=== PATIENT | male | born 1960 | race Caucasian/White ===

== ENCOUNTER 2017-04-04 20:05 | Emergency (ER) | payer BC ==
[2017-04-04 20:19] VITALS: BP 140/81
--- NOTE | 2017-04-05 02:02 | ED ---
Skin Complaint - HPI Summary HPI Summary: Patient presents to the ED after suffering from 2 bee stings this afternoon. He is allergic and has been stung before and has always needed to be in the ED with rash, difficulty breathing and often given epi, steroids, and benadryl. Today, immediately after sustaining the stings, he began to feel his feet swell up, which is common when he has bee stings, and took 50mg benadryl. After feet swelling, he feels difficultly breathing and his throat begins to close. He arrived to the ED 2 hours prior to provider seeing him, and upon examination he states that while this is usually the progression of his allergic reaction, upon arrival to the ED the swelling began to dissipate and he feels none of those symptoms currently. He comes here as a precaution. He has some soreness to the right arm where the bee had stung and there is surrounding erythema, but no other symptoms remain. Denies throat closing, SOB, difficulty breathing, swelling in feet or elsewhere. Denies health problems and takes no medications. He has an epi pen handy and with him at all times at home. - History of Current Complaint Chief Complaint: EDAnimalBite Time Seen by Provider: 04/04/17 20:40 Stated Complaint: BEE STING Hx Obtained From: Patient Onset/Duration: Started Hours Ago Skin Exposure Onset/Duration: Hours Ago Timing: Constant Onset Severity: Mild Current Severity: None Pain Intensity: 0 Pain Scale Used: 0-10 Numeric Skin Location: Diffuse Character: Swelling, Pruritus Aggravating Symptom(s): Nothing Alleviating Symptom(s): Nothing Associated Signs & Symptoms: Negative - Allergy/Home Medications Allergies/Adverse Reactions: Allergies Allergy/AdvReac Type Severity Reaction Status Date / Time Bee Pollen Allergy Difficulty Verified 04/04/17 20:16 Breathing PMH/Surg Hx/FS Hx/Imm Hx Previously Healthy: Yes - Immunization History Hx Pertussis Vaccination: No Immunizations Up to Date: Unable to Obtain/Confirm Infectious Disease History: No Infectious Disease History: Denies: Traveled Outside the [place] in Last 30 Days - Social History Occupation: Employed Full-time Lives: With Family Alcohol Use: Weekly Hx Substance Use: No Substance Use Type: Reports: None Hx Tobacco Use: No Smoking Status (MU): Light Every Day Tobacco Smoker Review of Systems Constitutional: Negative Negative: Fever, Chills, Fatigue, Skin Diaphoresis Eyes: Negative Negative: Photophobia, Blurred Vision ENT: Negative Negative: Sore Throat Cardiovascular: Negative Negative: Palpitations, Chest Pain Respiratory: Negative Negative: Shortness Of Breath, Cough Negative: Arthralgia, Myalgia Positive: Other - erythema to the right forearm without warmth or raised edges Neurological: Negative Psychological: Normal All Other Systems Reviewed And Are Negative: Yes Physical Exam Triage Information Reviewed: Yes Vital Signs On Initial Exam: Initial Vitals Temp Pulse Resp BP Pulse Ox 98 F 71 16 140/81 98 04/04/17 20:18 04/04/17 20:18 04/04/17 20:18 04/04/17 20:18 04/04/17 20:18 Vital Signs Reviewed: Yes Appearance: Positive: Well-Appearing, Well-Nourished Skin: Positive: Warm, Skin Color Reflects Adequate Perfusion Head/Face: Positive: Normal Head/Face Inspection Eyes: Positive: EOMI, EZEKIEL, Conjunctiva Clear ENT: Positive: Hearing grossly normal, Pharynx normal Neck: Positive: Supple, No Lymphadenopathy Respiratory/Lung Sounds: Positive: Clear to Auscultation, Breath Sounds Present Cardiovascular: Positive: RRR, Pulses are Symmetrical in both Upper and Lower Extremities Musculoskeletal: Positive: Normal, Strength/ROM Intact Neurological: Positive: Speech Normal Psychiatric: Positive: Normal Diagnostics - Vital Signs Vital Signs Temp Pulse Resp BP Pulse Ox 04/04/17 20:18 98 F 71 16 140/81 98 - Laboratory Lab Statement: Any lab studies that have been ordered have been reviewed, and results considered in the medical decision making process. Course/Dx - Course Course Of Treatment: Patient evaluated for bee sting. Airway patent. Lungs CTA. Patient is in NAD on feeling no symptoms on arrival. He states he merely came as a precaution. He has an allergy which normally will create swelling and SOB. He did not experience theses symptoms. He has been in the ED now for 2 hours and patient was explained treatment options and return precautions. He understands and is ready for discharge. - Differential Diagnoses - Skin Complaint Differential Diagnoses: Local Allergic Reaction, Other - bee sting, swelling, rash - Diagnoses Provider Diagnoses: Bee sting Discharge - Discharge Plan Condition: Stable Disposition: HOME Patient Education Materials: Insect Bite or Sting (ED) Referrals: Carolyn Hernandez MD [Primary Care Provider] - Additional Instructions: Return to the ED immediately if any symptoms worsen.
== END 2017-04-04 21:59 | disposition home or self-care (01) ==
LOC: ED 20:05
DX: T63.441A Toxic effect of venom of bees, accidental (unintentional), initial encounter (principal); Y92.89 Other specified places as the place of occurrence of the external cause; F17.210 Nicotine dependence, cigarettes, uncomplicated
CPT/HCPCS: 99281